=== PATIENT | female | born 1940 | race Caucasian/White ===

== ENCOUNTER 2024-05-08 08:57 | Emergency (ER) | payer OTHER ==
[~2024-05-08] VITALS: Ht 154.9 cm; Wt 52.2 kg
[2024-05-08 08:58] VITALS: BP_SYST 147; PULSE 70; RESP 18; TEMP 97.3; O2SAT 95
[2024-05-08] MEDS ORDERED: LOSA50TA28 PO (09:10)
[2024-05-08] MEDS ORDERED: TRAZ-251 PO (09:10)
[2024-05-08] MEDS ORDERED: MIRT7.5T11 PO (09:10)
[2024-05-08] MEDS ORDERED: CLON0.5T2 PO (09:10)
[2024-05-08] MEDS ORDERED: VENL25TA4 PO (09:10)
[2024-05-08] MEDS ORDERED: DONE-51 PO (09:11)
[2024-05-08] MEDS ORDERED: NALOXONE HCL 0.4 MG/ML AMP (NARCAN) IVP PRN (11:30)
[2024-05-08] MEDS: ACETAMINOPHEN/CODEINE 300 MG-30 MG TABLET PO ONE (11:36)
[2024-05-08 12:15] VITALS: BP_SYST 166; PULSE 75; RESP 22; O2SAT 95
== END 2024-05-08 12:15 | disposition home or self-care (01) ==
LOC: SED 08:57
DX: S00.03XA Contusion of scalp, initial encounter (principal); S09.90XA Unspecified injury of head, initial encounter; M54.50 Low back pain, unspecified; I10 Essential (primary) hypertension; Z79.899 Other long term (current) drug therapy; Z79.2 Long term (current) use of antibiotics; W18.39XA Other fall on same level, initial encounter; Y93.89 Activity, other specified; Y92.89 Other specified places as the place of occurrence of the external cause; Y99.8 Other external cause status
CPT/HCPCS: 70450-TC; 72220; 99284